=== PATIENT | male | born 1980 | race African-American/Black ===

== ENCOUNTER 2023-01-24 02:50 | Emergency (ER) | payer MEDICAID, OTHER ==
[~2023-01-24] VITALS: Ht 182.9 cm; Wt 83.0 kg
[2023-01-24 03:34] VITALS: O2SAT 100
[2023-01-24] MEDS ORDERED: CEPHALEXIN 250MG CAPSULE PO ONE (05:00)
[2023-01-24] MEDS ORDERED: SULFAMETHOXAZOLE/TRIMETHOPRIM 800/160MG TABLET PO ONE (05:00)
[2023-01-24] MEDS ORDERED: IBUPROFEN 400MG TABLET PO ONE (05:00)
[2023-01-24] MEDS ORDERED: ACETAMINOPHEN 325MG TABLET PO ONE (05:00)
[2023-01-24] MEDS ORDERED: LIDOCAINE HCL/EPINEPHRINE 1%-EPI 1:100,000 20 ML VIAL INFIL ONE (05:15)
[2023-01-24 05:23] VITALS: BP 121/83
[2023-01-24] MEDS ORDERED: SULF1TAB48 MT (06:03)
[2023-01-24] MEDS ORDERED: CEPH500C2 MT (06:03)
[2023-01-24] MEDS ORDERED: IBUP-2028 MT (06:03)
[2023-01-24] MEDS ORDERED: TOPUD PO (06:03)
[2023-01-24 06:18] VITALS: PULSE 90; RESP 18; TEMP 98.1
== END 2023-01-24 06:19 | disposition home or self-care (01) ==
LOC: ER 02:50
DX: R21 Rash and other nonspecific skin eruption (principal)
CPT/HCPCS: 99284; J3490; Z7610 ×3

== ENCOUNTER 2023-01-26 16:53 | Emergency (ER) | payer OTHER ==
[~2023-01-26] VITALS: Ht 182.9 cm; Wt 83.9 kg
[~2023-01-26 16:53] MED LIST: CEPH500C2 MT; IBUP-2028 MT; SULF1TAB48 MT; TOPUD PO
[2023-01-26 16:59] VITALS: BP 133/94; RESP 16; TEMP 98; O2SAT 99
[2023-01-26 17:06] VITALS: PULSE 88
== END 2023-01-26 19:17 | disposition left against medical advice (07) ==
LOC: ER 16:53
DX: Z53.21 Procedure and treatment not carried out due to patient leaving prior to being seen by health care provider (principal)
CPT/HCPCS: 99281

== ENCOUNTER 2023-01-28 06:23 | Emergency (ER) | payer OTHER ==
[~2023-01-28] VITALS: Ht 182.9 cm; Wt 84.0 kg
[2023-01-28 06:30] VITALS: BP 136/91; PULSE 99; RESP 16; TEMP 98.9; O2SAT 99
== END 2023-01-28 11:12 | disposition home or self-care (01) ==
LOC: ER 06:23
DX: Z48.00 Encounter for change or removal of nonsurgical wound dressing (principal)
CPT/HCPCS: 99281; Z7610 ×2

== ENCOUNTER 2023-03-20 23:23 | Emergency (ER) | payer SELFPAY ==
[~2023-03-20] VITALS: Ht 182.9 cm; Wt 79.0 kg
[2023-03-20 23:48] VITALS: O2SAT 100
[2023-03-21] MEDS ORDERED: LIDOCAINE HCL/PF 1% 10 MG/ML 5ML VIAL INFIL ONE (00:30)
[2023-03-21] MEDS ORDERED: BACITRACIN ZINC OINT UDPKT TOP ONE (00:30)
[2023-03-21] MEDS ORDERED: TETANUS, DIPHTHERIA, PERTUSSIS VAC/PF 0.5ML (>10YR OLD) IM ONE (00:30)
[2023-03-21] MEDS ORDERED: KETOROLAC 15MG/ML VIAL IM ONE (01:00)
[2023-03-21] MEDS ORDERED: CEPH500T MT (01:14)
[2023-03-21] MEDS ORDERED: SULF1TAB48 MT (01:14)
[2023-03-21 01:29] VITALS: BP 128/83; PULSE 89; RESP 20; TEMP 97.8
== END 2023-03-21 01:31 | disposition home or self-care (01) ==
LOC: ER 23:37
DX: L02.214 Cutaneous abscess of groin (principal)
CPT/HCPCS: 54700; 99284; 90715; 90471; 96372; J1885; J3490; Z7610

== ENCOUNTER 2023-04-11 17:11 | Emergency (ER) | payer MEDICAID ==
[~2023-04-11] VITALS: Ht 182.9 cm; Wt 85.0 kg
[~2023-04-11 17:11] MED LIST changes: +CEPH500T MT
[2023-04-11 17:22] VITALS: BP 123/82; PULSE 108; RESP 19; TEMP 98.3; O2SAT 99
== END 2023-04-11 19:37 | disposition left against medical advice (07) ==
LOC: ER 17:11
DX: L02.31 Cutaneous abscess of buttock (principal); Z53.21 Procedure and treatment not carried out due to patient leaving prior to being seen by health care provider
CPT/HCPCS: 99281

== ENCOUNTER 2023-07-19 20:45 | Emergency (ER) | payer MEDICAID ==
[~2023-07-19] VITALS: Ht 182.9 cm; Wt 85.0 kg
[2023-07-19 21:48] VITALS: BP 132/99; PULSE 87; RESP 18; TEMP 98.2; O2SAT 98
[2023-07-20] MEDS ORDERED: IBUP-2029 MT (00:38)
== END 2023-07-20 03:08 | disposition home or self-care (01) ==
LOC: ER 20:45
DX: S90.02XA Contusion of left ankle, initial encounter (principal); V09.9XXA Pedestrian injured in unspecified transport accident, initial encounter; Y93.89 Activity, other specified; Y92.89 Other specified places as the place of occurrence of the external cause; Y99.8 Other external cause status
CPT/HCPCS: 73600; 99283; Z7610

== ENCOUNTER 2024-01-16 23:40 | Emergency (ER) | payer MEDICAID ==
[~2024-01-16] VITALS: Ht 170.2 cm; Wt 84.0 kg
[~2024-01-16 23:40] MED LIST changes: +IBUP-2029 MT
[2024-01-16 23:46] VITALS: O2SAT 95
[2024-01-16 23:53] VITALS: BP 141/99; PULSE 98; RESP 18; TEMP 98.4; O2SAT 99
== END 2024-01-17 01:55 | disposition left against medical advice (07) ==
LOC: ER 23:40
DX: K08.89 Other specified disorders of teeth and supporting structures (principal); Z53.21 Procedure and treatment not carried out due to patient leaving prior to being seen by health care provider

== ENCOUNTER 2024-01-26 00:26 | Emergency (ER) | payer MEDICAID ==
[~2024-01-26] VITALS: Ht 182.9 cm; Wt 78.4 kg
[2024-01-26 00:31] VITALS: BP 144/100; PULSE 90; RESP 18; TEMP 98.1; O2SAT 100
[2024-01-26 01:28] LABS: BASOPHILS % 0.7 % (0.0-2.0); EOSINOPHILS % 2.1 % (0.0-5.0); HEMATOCRIT. 36.1 % (42.0-52.0); HEMOGLOBIN. 12.1 g/dL (14.0-18.0); LYMPHOCYTES % 43.8 % (20.0-50.0); MEAN CORPUSCULAR HEMOGLOBIN 28.9 pg (28.0-32.0); MEAN CORPUSCULAR HGB CONC 33.5 g/dL (31.0-37.0); MEAN CORPUSCULAR VOLUME 86.3 fL (80.0-94.0); MEAN PLATELET VOLUME 7.1 fl (7.4-10.4); MONOCYTES % 7.8 % (2.0-8.0); NEUTROPHILS % 45.6 % (40.0-76.0); PLATELET 291 x1000/uL (130-400); RED BLOOD CELL COUNT 4.18 mill/uL (4.7-6.1); RED CELL DISTRIBUTION WIDTH 13.1 % (11.6-14.6); WHITE BLOOD COUNT 5.4 x1000/uL (4.5-11.0)
[2024-01-26] MEDS ORDERED: KETOROLAC 30MG/ML VIAL IM ONE (01:30)
[2024-01-26 01:37] LABS: CHLORIDE 105 mEq/L (98-107); POTASSIUM 4.3 mEq/L (3.5-5.1); SODIUM 135 mEq/L (136-145)
[2024-01-26 01:38] LABS: CALCIUM 9.4 mg/dL (8.7-10.4); CARBON DIOXIDE 26 mEq/L (21-32)
[2024-01-26 01:43] LABS: CREATININE 1.2 mg/dL (0.6-1.3); GLUCOSE 108 mg/dL (70-105); UREA NITROGEN BLOOD 18 mg/dL (9-23)
[2024-01-26 01:45] LABS: TROPONIN I HIGH SENSITIVITY 7 ng/L (3.0-53)
== END 2024-01-26 01:43 | disposition left against medical advice (07) ==
LOC: ER 00:26
DX: R07.89 Other chest pain (principal)
CPT/HCPCS: 80048; 83880; 85025; 84484; 36415; 71045; 93005; 99285; Z7610 ×2

== ENCOUNTER 2024-07-24 20:58 | Emergency (ER) | payer MEDICAID ==
[~2024-07-24] VITALS: Ht 182.9 cm; Wt 84.0 kg
[2024-07-24 21:15] VITALS: O2SAT 98
[2024-07-24] MEDS ORDERED: HYDR-459 MT (23:30)
[2024-07-25] MEDS: MORPHINE SULFATE 4 MG/ML INJ (FOR IV/IM USE) IM ONE (01:37)
[2024-07-25] MEDS: ONDANSETRON HCL 4MG/2ML INJ IV NR (01:37)
[2024-07-25] MEDS: LIDOCAINE HCL 1% 20ML VIAL INFIL ONE (01:37)
[2024-07-25] MEDS ORDERED: SULF1TAB48 MT (02:03)
[2024-07-25] MEDS ORDERED: IBUP-2029 MT ×2 (02:03→02:04)
[2024-07-25] MEDS ORDERED: CEPH500T MT (02:03)
[2024-07-25] MEDS: MORPHINE SULFATE 4 MG/ML INJ (FOR IV/IM USE) IV ONE (02:26)
[2024-07-25 03:03] VITALS: BP 130/81; PULSE 87; RESP 16; TEMP 36.9; O2SAT 97
== END 2024-07-25 03:04 | disposition home or self-care (01) ==
LOC: ER 20:58
DX: N49.2 Inflammatory disorders of scrotum (principal); Z79.899 Other long term (current) drug therapy
CPT/HCPCS: 54700; 96372; 96374; 96375; 99285; J3490; J2405; J2270

== ENCOUNTER 2024-07-27 22:00 | Emergency (ER) | payer MEDICAID ==
[~2024-07-27] VITALS: Ht 182.9 cm; Wt 83.0 kg
[~2024-07-27 22:00] MED LIST changes: +HYDR-459 MT
[2024-07-27 22:17] VITALS: BP 119/81; TEMP 37; O2SAT 100
[2024-07-27 22:22] VITALS: PULSE 81; RESP 18; O2SAT 98
== END 2024-07-27 23:40 | disposition left against medical advice (07) ==
LOC: ER 22:00
DX: Z48.03 Encounter for change or removal of drains (principal); Z53.21 Procedure and treatment not carried out due to patient leaving prior to being seen by health care provider